=== PATIENT | female | born 1950 | race Caucasian/White ===

== ENCOUNTER 2017-06-29 05:00 | Inpatient (IN) | payer MEDICARE ==
[~2017-06-29] VITALS: Ht 175.3 cm; Wt 103.8 kg
[~2017-06-29 05:00] MED LIST: ACIDOPHILUS1 CAP PO; ALDACTONE25 M1 PO; ALLOPURINOL300 M1 PO; ALLOPURINOL300 MG; ALLOPURINOL300 MG PO; ATENOLOL50 MG; ATENOLOL50 MG PO; CRESTOR10 MG PO; GLIPIZIDE ER5 M1 PO; GLUCOPHAGE500 M3 PO; LEVAQUIN750 MG PO; LEVOTHROID200 MCG PO; LEVOTHYROXINE200 MC4 PO; LISINOPRIL-HC PO; LISINOPRIL-HCT1 EAC2 PO; MAG-AL PLUS XS30 ML PO; MIRALAX12 EA PO; NORVASC5 M2 PO; NOVOLIN 70100 UNITS/ SC; PERCOCET 5/3251 TAB PO; POTASSIUM CITR10 ME2 PO; ROSUVASTATIN CA10 MG PO; TENORMIN50 M1 PO; TYLENOL325 MG PO; VITAMIN D32000 UNI3 PO; ZESTORETIC 20/21 TAB
[2017-07-02] MEDS ORDERED: TYLENOL325 M2 PO (11:46)
[2017-07-02] MEDS ORDERED: ASPIRIN81 M1 PO (11:47)
== END 2017-07-02 12:50 | DRG 505 ==
LOC: CARE 05:00 → 5EB 05:21 → SHSC 05:21 → ORE 08:14 → PACU 09:33 → 5EB 10:25
PROVIDERS: Family Medicine; ADMIT Orthopaedic Surgery Foot and Ankle Surgery
PROC: 0QSN04Z Reposition Right Metatarsal with Internal Fixation Device, Open Approach (ICD-10-PCS; principal; 2017-06-29)
DX: S93.324A Dislocation of tarsometatarsal joint of right foot, initial encounter (principal); E11.610 Type 2 diabetes mellitus with diabetic neuropathic arthropathy; M21.961 Unspecified acquired deformity of right lower leg; I10 Essential (primary) hypertension; E78.5 Hyperlipidemia, unspecified; Z79.4 Long term (current) use of insulin; N20.0 Calculus of kidney; M10.9 Gout, unspecified; Z79.899 Other long term (current) drug therapy; Z82.49 Family history of ischemic heart disease and other diseases of the circulatory system; Z83.3 Family history of diabetes mellitus; Z85.850 Personal history of malignant neoplasm of thyroid; E89.0 Postprocedural hypothyroidism; E11.65 Type 2 diabetes mellitus with hyperglycemia; E66.9 Obesity, unspecified; Z68.33 Body mass index [BMI] 33.0-33.9, adult
CPT/HCPCS: C1713; J0690; J1650; J1815; J2405